=== PATIENT | male | born 1955 | race Caucasian/White ===

== ENCOUNTER 2016-08-20 22:22 | Emergency (ER) | payer BC ==
[~2016-08-20] VITALS: Ht 162.6 cm; Wt 100.0 kg
[~2016-08-20 22:22] MED LIST: AMLO2.5T PO; ATOR20TA15 PO; LOSA50TA PO; METF500T PO; TAMS0.4C4 PO
[2016-08-20 22:24] VITALS: BP 135/82; PULSE 78; RESP 16; TEMP 98.6; O2SAT 96
[2016-08-20] MEDS ORDERED: oxyCODONE/ACETAMINOPHEN 10 MG/325 MG TAB PO ONE (22:45)
--- NOTE | 2016-08-20 22:45 | PD ---
HPI Chief Complaint: Pain: Acute or Chronic Time Seen by Provider: 22:38 Travel History International Travel<30 days: No Contact w/Intl Traveler<30days: No Traveled to known affect area: No History of Present Illness HPI 61-year-old male here for evaluation of testicular pain. Patient was seen initially today at our freestanding emergency department in [place], and signed out AMA so he could come here to have an ultrasound performed to rule out torsion. Patient reports bilateral testicular pain for 3 days. He denies trauma. States that when he has intercourse he is unable to ejaculate. He reports that his urine was foul-smelling earlier today, but has not been in the last 3 days. No hematuria. He has history of diabetes and is on metformin. No fevers. He was given a dose of levaquin at our other facility today. PFSH Past Medical History Depression: Yes Cardiovascular Problems: Yes (HTN) High Cholesterol: Yes Diabetes: Yes Diminished Hearing: No Hypertension: Yes Past Surgical History Abdominal Surgery: Yes (ABSCESS A CHILD) Social History Alcohol Use: Yes (SOCIALLY) Tobacco Use: No Substance Use: No Allergies-Medications (Allergen,Severity, Reaction): Coded Allergies: No Known Allergies (Unverified , 08/20/16) Reported Meds & Prescriptions Reported Meds & Active Scripts Active Reported Amlodipine (Amlodipine Besylate) 2.5 Mg Tab 2.5 Mg PO DAILY Tamsulosin (Tamsulosin HCl) 0.4 Mg Cap 0.4 Mg PO HS Losartan (Losartan Potassium) 50 Mg Tab 50 Mg PO BID NEB Atorvastatin (Atorvastatin Calcium) 20 Mg Tab 20 Mg PO HS Metformin (Metformin HCl) 500 Mg Tab 500 Mg PO DAILY With a meal Review of Systems Except as stated in HPI: all other systems reviewed are Neg Physical Exam Narrative GENERAL: Well-developed, well-nourished, awake, alert, no acute distress. SKIN: Focused skin assessment warm/dry. GASTROINTESTINAL: Abdomen soft, non-tender, nondistended. Normal bowel sounds. : Normal external genitalia. Diffuse testicular tenderness without masses, without swelling, without deformity. Normal scrotum without crepitus or necrosis. Normal cremasterics reflex bilaterally. NEUROLOGICAL: Awake and alert. No obvious cranial nerve deficits. Motor grossly within normal limits. Normal speech. PSYCHIATRIC: Appropriate mood and affect; insight and judgment normal. Data Data Last Documented VS Vital Signs Date Time Temp Pulse Resp B/P Pulse Ox O2 Delivery O2 Flow Rate FiO2 08/20/16 22:24 98.6 78 16 135/82 96 Room Air Orders Oxycodone-Acetamin 10-325 Mg (Percocet 1 (08/20/16 22:45) Gc And Chlamydia Pcr (08/20/16 22:43) MDM Medical Decision Making Medical Screen Exam Complete: Yes Emergency Medical Condition: Yes Differential Diagnosis Orchitis, urethritis, prostatitis, hydrocele, varicocele, testicular torsion Narrative Course Testicular ultrasound: Small bilateral hydroceles and epididymal head cysts some of which are complex. Normal blood flow in bilateral testicles. Patient made aware of all findings. There are no signs or symptoms to suggest Stacey's gangrene. Patient will be discharged home with a prescription for Cipro as well as pain medication. Urology follow-up this week. He was informed on when to return to the emergency department. He verbalizes understanding and agreement with plan. Diagnosis Primary Impression: Testicle pain Additional Impressions: Epididymal cyst Hydrocele Qualified Code: N43.3 - Hydrocele, unspecified hydrocele type Referrals: Angel Dean MD 3 days Additional Instructions: Follow-up with urologist Dr. Dean or a urologist of your choice this week. Return to the emergency department for worsening symptoms or any other concerns. Scripts Hydrocodone-Acetaminophen (Lortab)5-325 Mg Tab1 Tab PO Q6H PRN (PAIN) #15 TAB Ref 0 Prov:Robel Hull MD 08/21/16 Ciprofloxacin (Cipro)500 Mg [id number] Mg PO BID 14 Days Ref 0 Prov:Robel Hull MD 08/21/16 Disposition: 01 DISCHARGE HOME Condition: Stable Robel Hull MD Aug 20, 2016 22:45
[2016-08-21] MEDS ORDERED: HYDR-3533 PO (00:15)
[2016-08-21] MEDS ORDERED: CIPR-9 PO (00:15)
--- NOTE | 2016-08-24 10:44 | RADRPT ---
EXAM DATE/TIME: 08/20/2016 23:19 [facility] COMPARISON: No previous studies available for comparison. INDICATIONS : Scrotal pain. MEDICAL HISTORY : Hypercholesterolemia. Hypertension. Diabetes. Depression. SURGICAL HISTORY : Abdominal abscess drainage. ENCOUNTER: Initial ACUITY: 3 days PAIN SCORE: 3/10 LOCATION: Bilateral scrotum. MEASUREMENTS: RIGHT TESTICLE: 4.0 x 3.3 x 2.0cm LEFT TESTICLE: 3.8 x 3.0 x 2.2cm FINDINGS: RIGHT TESTICLE: Homogeneous echotexture without intra or extratesticular mass. Blood flow is symmetric and within no rmal limits. Small hydrocele is present without varicocele. There is a complex 6 mm epididymal head c yst with a separate 3 mm epididymal cyst. LEFT TESTICLE: Homogeneous echotexture without intra or extratesticular mass. Blood flow is symmetric and within no rmal limits. Small hydrocele is present without varicocele. There is a tiny 2 mm epididymal head cyst with a separate complex almost 3 mm epididymal head cyst. CONCLUSION: Small bilateral hydroceles and epididymal head cysts some of which are complex. Felicitas Nance MD on August 20, 2016 at 23:49 Board Certified Radiologist. This report was verified electronically.
== END 2016-08-21 00:26 | disposition home or self-care (01) ==
LOC: NEPE 22:22
DX: N50.812 Left testicular pain (principal); N50.811 Right testicular pain; I10 Essential (primary) hypertension; E11.9 Type 2 diabetes mellitus without complications; Z79.84 Long term (current) use of oral hypoglycemic drugs; N43.3 Hydrocele, unspecified
CPT/HCPCS: 76870; 81001; 93975; 99283; 99284